=== PATIENT | male | born 1995 | race Caucasian/White ===

== ENCOUNTER 2017-12-02 08:30 | Emergency (ER) | payer OTHER ==
[~2017-12-02] VITALS: Ht 170.2 cm; Wt 78.9 kg
--- NOTE | 2017-12-02 08:35 | NUR ---
BIBRA 76 [facility] custody c/o laceration to r fatima, multiple abrasions to back and r elbow, tasered to abdominal area and back. Patient is a/ox 4, breathing even and unlabored. No sob, nad, vitals stable. Safety and comfort measures in place. awaiting md orders.
--- NOTE | 2017-12-02 08:47 | NUR ---
1 TAZER WOODY REMOVED FROM LUQ ABDOMEN AND 1 TAZER WOODY REMOVED FROM RIGHT UPPER BACK BY PA.
--- NOTE | 2017-12-02 08:59 | NUR ---
PT REFUSED EKG. NOTIFIED.
[2017-12-02] MEDS ORDERED: IV NS 0.9% 1,000 ML BAG IV ONE (09:00)
[2017-12-02] MEDS ORDERED: TDAP [DIPH/PERTUSSIS/TET] 0.5 ML VIAL IM ONE (09:00)
[2017-12-02] MEDS ORDERED: LIDOCAINE HCL/PF 1% 30 ML VIAL TP ONE (09:00)
--- NOTE | 2017-12-02 09:00 | NUR ---
PATIENT REFUSED IV INSERTION, BLOOD DRAW, AND IV FLUIDS, DESPITE EXPLANATION OF RISKS AND CONSEQUENCES. INFORMED.
--- NOTE | 2017-12-02 09:08 | NUR ---
patient refused tdap vaccine.
--- NOTE | 2017-12-02 09:25 | NUR ---
PATIENT REFUSED SUTURES ON RIGHT MUNOZ LAC. ALSO REFUSED US TO WRAP MUNOZ WITH DRESSING/KERLIX. INFORMED.
--- NOTE | 2017-12-02 09:43 | NUR ---
Patient leaving ama. Refused to sign discharge instruction and AMA form. Discharge instruction provide to [employer]. Patient leaving in custody, without completing any treatment.
[2017-12-02 09:47] VITALS: BP 148/86
== END 2017-12-02 09:48 | disposition left against medical advice (07) ==
LOC: ER 08:32 → EDBD 08:32 → ER 09:48
DX: S81.811A Laceration without foreign body, right lower leg, initial encounter (principal); R00.0 Tachycardia, unspecified; Y04.8XXA Assault by other bodily force, initial encounter; Y93.89 Activity, other specified; Y92.89 Other specified places as the place of occurrence of the external cause; Y99.8 Other external cause status
CPT/HCPCS: 93005; 99284; A4606; A6402 ×2; J3490; Z7610; J7030